=== PATIENT | male | born 2000 | race Caucasian/White ===

== ENCOUNTER 2020-11-09 09:29 | Inpatient (IN) ==
[2020-11-09] MEDS ORDERED: PHENOBARBITAL IV STA (09:36)
[2020-11-09] MEDS ORDERED: SODIUM CHLORIDE 0.9% IV STA (09:36)
[2020-11-09] MEDS ORDERED: ROCURONIUM 100 MG/10 ML VIAL IV ONE ×2 (09:55→11:14)
[2020-11-09] MEDS ORDERED: ETOMIDATE 20 MG/10 ML VIAL IV ONE (09:55)
[2020-11-09] MEDS ORDERED: DEXAMETHASONE 10 MG/1 ML VIAL IV STA (09:57)
[2020-11-09 10:00] LABS: Basophils # 0.1 10*3/uL (0.0-0.2); Basophils % 0.5 % (0.0-0.8); Eosinophils % 0.1 % (0.00-10.9); Hematocrit 46.1 VOL% (42.0-52.0); Hemoglobin 14.6 GM/DL (14.0-18.0); Immature Granulocytes % 2.1 %; Immature Granulocytes Absolute 0.46 #; Lymphocytes # 2.5 10*3/uL (1.4-4.0); Lymphocytes % 11.7 % (21.2-54.2); Mean Corpuscular HGB Conc 31.7 GM/DL (32-36); Mean Corpuscular Volume 94.3 FL (87-102); Mean Platelet Volume 9.6 FL (9.6-12.0); Monocytes % 2.5 % (1.7-12.7); NRBC # 0.02 10*3/uL; Neutrophils % 83.1 % (38.7-73.9); Platelet Count 165 T/CUMM (130-400); Red Blood Count 4.89 MC/CUMM (3.8-5.5); Red Cell Distribution Width 13.3 % (9.3-17.3); White Blood Count 21.5 T/CUMM (4-12)
[2020-11-09 10:17] LABS: Albumin 2.8 G/DL (3.4-5.0); Calcium 8.4 MG/DL (8.5-10.1); Ferritin 1725.7 ng/mL (26-388); Osmolality,Calculated 286.5 MOS/KG (273-304); Potassium 4.7 MMOL/L (3.5-5.1); Total Protein 6.8 G/DL (6.4-8.2)
[2020-11-09 10:22] LABS: Hypochromasia 1+; Lymphocytes 10 % (20-55); Microcytosis 1+; Platelet Estimate Adequate; Segmented Neutrophils 85 % (50-85); Total Cells Counted 100
[2020-11-09] MEDS: MIDAZOLAM 100 MG in SODIUM CHLORIDE 0.9% 80 ML IV PRN ×2 (11:15→19:42)
[2020-11-09] MEDS ORDERED: ROCURONIUM 100 MG/10 ML VIAL IV STA (11:17)
[2020-11-09 11:36] LABS: ABG Base Excess -0.2 MMOL/L (-2.5-2.5); ABG HCO3 24.1 MMOL/L (20-26); ABG Oxygen Saturation 91.6 % (95-100); ABG PCO2 59.2 MM HG (35-48); ABG PH 7.287 (7.35-7.45); ABG PO2 79.8 MM HG (80-95); ABG TCO2 24.5 MMOL/L (23-27)
[2020-11-09] MEDS ORDERED: fentaNYL INJ 1,250 MCG in SODIUM CHLORIDE 0.9% 225 ML IV PRN (11:41)
[2020-11-09] MEDS ORDERED: ALBUTEROL 2.5 MG/3 ML NEB RESP TX PRN (11:41)
[2020-11-09] MEDS ORDERED: GLUCAGON 1 MG VIAL IM PRN (11:46)
[2020-11-09] MEDS ORDERED: DEXTROSE 50% 25 GM/50 ML VIAL IV PRN (11:46)
[2020-11-09] MEDS: VECURONIUM 100 MG in SODIUM CHLORIDE 0.9% 100 ML IV SCH (11:50)
[2020-11-09] MEDS ORDERED: CHOLECALCIFEROL 1,000 UNIT TABLET PO SCH (12:00)
[2020-11-09] MEDS ORDERED: ASCORBIC ACID 500 MG TABLET PO SCH (12:00)
[2020-11-09] MEDS ORDERED: ZINC GLUCONATE 50 MG TABLET PO SCH (12:00)
[2020-11-09] MEDS ORDERED: ENOXAPARIN 60 MG/0.6 ML SYRINGE SUBCUT SCH (12:00)
[2020-11-09] MEDS: FAMOTIDINE 20 MG/2 ML VIAL IV SCH (12:45)
[2020-11-09] MEDS: INSULIN LISPRO 100 UNIT/ML SUBCUT SCH ×2 (13:02→18:10)
[2020-11-09] MEDS: ASCORBIC ACID 500 MG TABLET NG SCH ×2 (13:08→21:12)
[2020-11-09] MEDS: ZINC GLUCONATE 50 MG TABLET NG SCH (13:08)
[2020-11-09] MEDS: CHOLECALCIFEROL 1,000 UNIT TABLET NG SCH (13:08)
[2020-11-09] MEDS ORDERED: FUROSEMIDE 40 MG/4 ML VIAL IV ONE (15:13)
[2020-11-09] MEDS: HEPARIN DRIP 25,000 UNITS/500 ML PREMIX IV SCH (17:22)
[2020-11-09] MEDS: PIPERACILLIN/TAZOBACTAM 3,375 MG in SODIUM CHLORIDE 0.9% 100 ML IV SCH ×2 (17:22→23:08)
[2020-11-09] MEDS: fentaNYL INJ 5,000 MCG in SODIUM CHLORIDE 0.9% 150 ML IV PRN (20:55)
[2020-11-10] MEDS ORDERED: ENOXAPARIN 100 MG/ML SYRINGE SUBCUT SCH
[2020-11-10] MEDS: INSULIN LISPRO 100 UNIT/ML SUBCUT SCH ×4 (00:10→17:53)
[2020-11-10] MEDS: FAMOTIDINE 20 MG/2 ML VIAL IV SCH ×2 (00:11→12:33)
[2020-11-10 03:30] LABS: ABG Base Excess -0.1 MMOL/L (-2.5-2.5); ABG HCO3 26.5 MMOL/L (20-26); ABG Oxygen Saturation 98.3 % (95-100); ABG PCO2 51.1 MM HG (35-48); ABG PH 7.333 (7.35-7.45); ABG PO2 170.2 MM HG (80-95); ABG TCO2 28.1 MMOL/L (23-27)
[2020-11-10 04:19] LABS: Basophils % 0.1 % (0.0-0.8); Hemoglobin 13.6 GM/DL (14.0-18.0); Immature Granulocytes % 2.6 %; Immature Granulocytes Absolute 0.39 #; Lymphocytes # 0.8 10*3/uL (1.4-4.0); Lymphocytes % 5.5 % (21.2-54.2); Mean Corpuscular HGB Conc 30.9 GM/DL (32-36); Mean Corpuscular Volume 92.8 FL (87-102); Mean Platelet Volume 10.4 FL (9.6-12.0); Monocytes % 2.2 % (1.7-12.7); NRBC # 0.02 10*3/uL; Neutrophils % 89.6 % (38.7-73.9); Platelet Count 150 T/CUMM (130-400); Red Blood Count 4.74 MC/CUMM (3.8-5.5); White Blood Count 14.8 T/CUMM (4-12)
[2020-11-10 04:42] LABS: Albumin 2.6 G/DL (3.4-5.0); Bilirubin,Total 0.6 MG/DL (0.20-1.00); Calcium 8.4 MG/DL (8.5-10.1); Osmolality,Calculated 293.5 MOS/KG (273-304); Potassium 5.3 MMOL/L (3.5-5.1); Risk Ratio 3.87; Total Protein 7.1 G/DL (6.4-8.2); VLDL Cholesterol 45.8 MG/DL
[2020-11-10 04:47] LABS: Ferritin 1740.4 ng/mL (26-388)
[2020-11-10] MEDS: MIDAZOLAM 100 MG in SODIUM CHLORIDE 0.9% 80 ML IV PRN ×2 (05:40→16:42)
[2020-11-10] MEDS: HEPARIN DRIP 25,000 UNITS/500 ML PREMIX IV SCH ×2 (07:14→21:29)
[2020-11-10] MEDS: PIPERACILLIN/TAZOBACTAM 3,375 MG in SODIUM CHLORIDE 0.9% 100 ML IV SCH ×3 (09:10→23:23)
[2020-11-10] MEDS: DEXAMETHASONE 4 MG/1 ML VIAL IV SCH (09:10)
[2020-11-10] MEDS: ASCORBIC ACID 500 MG TABLET NG SCH ×2 (09:11→21:39)
[2020-11-10] MEDS: CHOLECALCIFEROL 1,000 UNIT TABLET NG SCH (09:11)
[2020-11-10] MEDS: ZINC GLUCONATE 50 MG TABLET NG SCH (09:11)
[2020-11-10] MEDS ORDERED: TOCILIZUMAB 800 MG in SODIUM CHLORIDE 0.9% 100 ML IV ONE (11:30)
[2020-11-10] MEDS: INSULIN GLARGINE 100 UNIT/ML SUBCUT SCH (12:32)
[2020-11-10] MEDS: METOPROLOL TARTRATE 25 MG TABLET NG SCH ×2 (12:32→21:39)
[2020-11-10] MEDS: VECURONIUM 100 MG in SODIUM CHLORIDE 0.9% 100 ML IV SCH (12:33)
[2020-11-10 14:21] LABS: Calcium 8.1 MG/DL (8.5-10.1); Osmolality,Calculated 302.1 MOS/KG (273-304); Potassium 5.3 MMOL/L (3.5-5.1)
[2020-11-10] MEDS ORDERED: SODIUM POLYSTYRENE SULFATE 15 GM/60 ML BOTTLE PO ONE (15:17)
[2020-11-10] MEDS: ACETAMINOPHEN 325 MG TABLET PO PRN ×2 (15:47→21:39)
[2020-11-10] MEDS ORDERED: BISACODYL 10 MG SUPP RECTAL ONE (16:09)
[2020-11-10] MEDS: fentaNYL INJ 5,000 MCG in SODIUM CHLORIDE 0.9% 150 ML IV PRN (18:39)
[2020-11-11] MEDS: INSULIN LISPRO 100 UNIT/ML SUBCUT SCH ×4 (00:55→18:25)
[2020-11-11] MEDS: FAMOTIDINE 20 MG/2 ML VIAL IV SCH ×2 (00:55→12:32)
[2020-11-11] MEDS: MIDAZOLAM 100 MG in SODIUM CHLORIDE 0.9% 80 ML IV PRN ×3 (02:23→22:36)
[2020-11-11 04:19] LABS: Basophils % 0.2 % (0.0-0.8); Eosinophils # 0.1 10*3/uL (0.0-0.87); Eosinophils % 0.7 % (0.00-10.9); Hematocrit 40.2 VOL% (42.0-52.0); Hemoglobin 12.4 GM/DL (14.0-18.0); Immature Granulocytes % 3.4 %; Immature Granulocytes Absolute 0.43 #; Lymphocytes # 1.4 10*3/uL (1.4-4.0); Lymphocytes % 10.8 % (21.2-54.2); Mean Corpuscular HGB Conc 30.8 GM/DL (32-36); Mean Corpuscular Volume 95.3 FL (87-102); Monocytes % 4.6 % (1.7-12.7); Neutrophils % 80.3 % (38.7-73.9); Platelet Count 189 T/CUMM (130-400); Red Blood Count 4.22 MC/CUMM (3.8-5.5); Red Cell Distribution Width 13.1 % (9.3-17.3); White Blood Count 12.7 T/CUMM (4-12)
[2020-11-11 04:38] LABS: ABG Base Excess 6.1 MMOL/L (-2.5-2.5); ABG HCO3 31.9 MMOL/L (20-26); ABG Oxygen Saturation 97.5 % (95-100); ABG PCO2 51.2 MM HG (35-48); ABG PH 7.413 (7.35-7.45); ABG PO2 110.9 MM HG (80-95); ABG TCO2 33.5 MMOL/L (23-27)
[2020-11-11 05:05] LABS: Albumin 2.2 G/DL (3.4-5.0); Bilirubin,Total 0.6 MG/DL (0.20-1.00); Calcium 7.9 MG/DL (8.5-10.1); Ferritin 1837.2 ng/mL (26-388); Osmolality,Calculated 298.8 MOS/KG (273-304); Potassium 4.4 MMOL/L (3.5-5.1); Total Protein 6.2 G/DL (6.4-8.2)
[2020-11-11] MEDS: METOPROLOL TARTRATE 25 MG TABLET NG SCH ×2 (08:30→22:15)
[2020-11-11] MEDS: ZINC GLUCONATE 50 MG TABLET NG SCH (08:30)
[2020-11-11] MEDS: PIPERACILLIN/TAZOBACTAM 3,375 MG in SODIUM CHLORIDE 0.9% 100 ML IV SCH ×2 (08:30→18:43)
[2020-11-11] MEDS: CHOLECALCIFEROL 1,000 UNIT TABLET NG SCH (08:30)
[2020-11-11] MEDS: POLYETHYLENE GLYCOL POWDER 17 GM PACK PO SCH (08:30)
[2020-11-11] MEDS: ASCORBIC ACID 500 MG TABLET NG SCH ×2 (08:31→22:15)
[2020-11-11] MEDS: DEXAMETHASONE 4 MG/1 ML VIAL IV SCH (08:31)
[2020-11-11] MEDS: INSULIN GLARGINE 100 UNIT/ML SUBCUT SCH (08:31)
[2020-11-11] MEDS ORDERED: INSULIN GLARGINE 100 UNIT/ML SUBCUT ONE (10:37)
[2020-11-11] MEDS ORDERED: methylPREDNISolone SOD SUC 40 MG/1 ML VIAL IV SCH (11:00)
[2020-11-11] MEDS: HEPARIN DRIP 25,000 UNITS/500 ML PREMIX IV SCH ×2 (12:11→18:42)
[2020-11-11] MEDS: AZITHROMYCIN INJ 500 MG in SODIUM CHLORIDE 0.9% 250 ML IV SCH (15:10)
[2020-11-11] MEDS: MICAFUNGIN 150 MG in SODIUM CHLORIDE 0.9% 100 ML IV SCH (16:48)
[2020-11-11] MEDS: ACETAMINOPHEN 325 MG TABLET PO PRN (22:15)
[2020-11-12] MEDS: methylPREDNISolone SOD SUC 40 MG/1 ML VIAL IV SCH ×2 (00:01→12:14)
[2020-11-12] MEDS: FAMOTIDINE 20 MG/2 ML VIAL IV SCH ×2 (00:04→12:14)
[2020-11-12] MEDS: INSULIN LISPRO 100 UNIT/ML SUBCUT SCH ×4 (00:12→18:21)
[2020-11-12] MEDS: HEPARIN DRIP 25,000 UNITS/500 ML PREMIX IV SCH (01:37)
[2020-11-12] MEDS: PIPERACILLIN/TAZOBACTAM 3,375 MG in SODIUM CHLORIDE 0.9% 100 ML IV SCH ×3 (02:58→17:46)
[2020-11-12 03:31] LABS: ABG Base Excess 6.2 MMOL/L (-2.5-2.5); ABG Oxygen Saturation 97.2 % (95-100); ABG PCO2 53.2 MM HG (35-48); ABG PH 7.395 (7.35-7.45); ABG TCO2 28.8 MMOL/L (23-27)
[2020-11-12 05:16] LABS: Basophils % 0.1 % (0.0-0.8); Hematocrit 37.5 VOL% (42.0-52.0); Hemoglobin 11.4 GM/DL (14.0-18.0); Immature Granulocytes % 1.7 %; Immature Granulocytes Absolute 0.16 #; Lymphocytes # 0.7 10*3/uL (1.4-4.0); Lymphocytes % 7.7 % (21.2-54.2); Mean Corpuscular HGB Conc 30.4 GM/DL (32-36); Mean Corpuscular Volume 95.2 FL (87-102); Mean Platelet Volume 10.5 FL (9.6-12.0); Monocytes % 4.3 % (1.7-12.7); Neutrophils % 86.2 % (38.7-73.9); Platelet Count 209 T/CUMM (130-400); Red Blood Count 3.94 MC/CUMM (3.8-5.5); Red Cell Distribution Width 13.2 % (9.3-17.3); White Blood Count 9.3 T/CUMM (4-12)
[2020-11-12] MEDS: fentaNYL INJ 5,000 MCG in SODIUM CHLORIDE 0.9% 150 ML IV PRN (05:43)
[2020-11-12 05:45] LABS: Alanine Aminotransferase 48 U/L (16-61); Albumin 2.2 G/DL (3.4-5.0); Alkaline Phosphatase 50 U/L (45-117); Aspartate Amino Transferase 37 U/L (0-37); Bilirubin,Total < 0.39 MG/DL (0.20-1.00); Blood Urea Nitrogen 26 MG/DL (7-18); Calcium 7.7 MG/DL (8.5-10.1); Carbon Dioxide 31 MMOL/L (21-32); Estimated Glom Filtration Rate 109 ML/MIN; Ferritin 1803.5 ng/mL (26-388); Glucose 260 MG/DL (74-106); Osmolality,Calculated 299.8 MOS/KG (273-304); Potassium 4.9 MMOL/L (3.5-5.1); Sodium 144 MMOL/L (136-145); Total Protein 5.9 G/DL (6.4-8.2)
[2020-11-12] MEDS: METOPROLOL TARTRATE 25 MG TABLET NG SCH ×2 (08:42→20:18)
[2020-11-12] MEDS: ASCORBIC ACID 500 MG TABLET NG SCH ×2 (08:42→20:18)
[2020-11-12] MEDS: CHOLECALCIFEROL 1,000 UNIT TABLET NG SCH (08:42)
[2020-11-12] MEDS: ZINC GLUCONATE 50 MG TABLET NG SCH (08:42)
[2020-11-12] MEDS: INSULIN GLARGINE 100 UNIT/ML SUBCUT SCH (08:43)
[2020-11-12] MEDS: POLYETHYLENE GLYCOL POWDER 17 GM PACK PO SCH (08:43)
[2020-11-12] MEDS: MIDAZOLAM 100 MG in SODIUM CHLORIDE 0.9% 80 ML IV PRN ×2 (09:30→19:16)
[2020-11-12] MEDS ORDERED: FUROSEMIDE 40 MG/4 ML VIAL IV ONE (11:02)
[2020-11-12] MEDS ORDERED: APIXABAN 5 MG TABLET PO SCH (11:05)
[2020-11-12] MEDS: ACETAMINOPHEN 325 MG TABLET PO PRN ×3 (12:15→22:02)
[2020-11-12] MEDS: AZITHROMYCIN INJ 500 MG in SODIUM CHLORIDE 0.9% 250 ML IV SCH (12:22)
[2020-11-12] MEDS: MICAFUNGIN 150 MG in SODIUM CHLORIDE 0.9% 100 ML IV SCH (14:42)
[2020-11-12] MEDS ORDERED: IBUPROFEN 600 MG TABLET PO PRN (16:51)
[2020-11-12] MEDS: PANTOPRAZOLE 40 MG VIAL IV SCH (20:18)
[2020-11-12] MEDS ORDERED: KETOROLAC 15 MG/1 ML VIAL IV ONE (20:45)
[2020-11-13] MEDS: IBUPROFEN 100 MG/5 ML UDCUP PO PRN (00:53)
[2020-11-13] MEDS: INSULIN LISPRO 100 UNIT/ML SUBCUT SCH ×4 (01:03→18:19)
[2020-11-13] MEDS: FAMOTIDINE 20 MG/2 ML VIAL IV SCH ×2 (01:15→11:53)
[2020-11-13] MEDS: methylPREDNISolone SOD SUC 40 MG/1 ML VIAL IV SCH ×2 (01:17→11:53)
[2020-11-13] MEDS: PIPERACILLIN/TAZOBACTAM 3,375 MG in SODIUM CHLORIDE 0.9% 100 ML IV SCH ×2 (02:27→11:02)
[2020-11-13] MEDS: HEPARIN DRIP 25,000 UNITS/500 ML PREMIX IV SCH ×2 (02:28→16:12)
[2020-11-13] MEDS: fentaNYL INJ 5,000 MCG in SODIUM CHLORIDE 0.9% 150 ML IV PRN ×2 (02:49→18:47)
[2020-11-13 04:36] LABS: ABG Base Excess 7.6 MMOL/L (-2.5-2.5); ABG HCO3 31.3 MMOL/L (20-26); ABG PCO2 46.7 MM HG (35-48); ABG PH 7.454 (7.35-7.45); ABG PO2 72.9 MM HG (80-95); ABG TCO2 28.8 MMOL/L (23-27)
[2020-11-13 04:49] LABS: Basophils % 0.1 % (0.0-0.8); Eosinophils # 0.1 10*3/uL (0.0-0.87); Eosinophils % 1.3 % (0.00-10.9); Hematocrit 37.6 VOL% (42.0-52.0); Hemoglobin 11.7 GM/DL (14.0-18.0); Immature Granulocytes % 1.1 %; Lymphocytes # 1.1 10*3/uL (1.4-4.0); Lymphocytes % 11.6 % (21.2-54.2); Mean Corpuscular HGB Conc 31.1 GM/DL (32-36); Mean Corpuscular Volume 95.4 FL (87-102); Mean Platelet Volume 10.8 FL (9.6-12.0); Monocytes % 5.9 % (1.7-12.7); Platelet Count 202 T/CUMM (130-400); Red Blood Count 3.94 MC/CUMM (3.8-5.5); Red Cell Distribution Width 13.2 % (9.3-17.3); White Blood Count 9.2 T/CUMM (4-12)
[2020-11-13 05:28] LABS: Calcium 8.3 MG/DL (8.5-10.1); Ferritin 1742.1 ng/mL (26-388); Osmolality,Calculated 299.8 MOS/KG (273-304); Potassium 4.4 MMOL/L (3.5-5.1)
[2020-11-13] MEDS: MIDAZOLAM 100 MG in SODIUM CHLORIDE 0.9% 80 ML IV PRN ×2 (05:57→19:15)
[2020-11-13] MEDS ORDERED: VANCOMYCIN INJ 1,750 MG in SODIUM CHLORIDE 0.9% 500 ML IV SCH (08:00)
[2020-11-13] MEDS: INSULIN GLARGINE 100 UNIT/ML SUBCUT SCH (08:48)
[2020-11-13] MEDS: PANTOPRAZOLE 40 MG VIAL IV SCH (08:48)
[2020-11-13] MEDS: ASCORBIC ACID 500 MG TABLET NG SCH ×2 (08:49→20:53)
[2020-11-13] MEDS: POLYETHYLENE GLYCOL POWDER 17 GM PACK PO SCH (08:49)
[2020-11-13] MEDS: CHOLECALCIFEROL 1,000 UNIT TABLET NG SCH (08:49)
[2020-11-13] MEDS: ZINC GLUCONATE 50 MG TABLET NG SCH (08:49)
[2020-11-13] MEDS: METOPROLOL TARTRATE 25 MG TABLET NG SCH ×2 (08:49→20:57)
[2020-11-13] MEDS ORDERED: VANCOMYCIN INJ 2,500 MG in SODIUM CHLORIDE 0.9% 500 ML IV ONE (15:00)
[2020-11-13] MEDS: MEROPENEM 500 MG in SODIUM CHLORIDE 0.9% 100 ML IV SCH (19:32)
[2020-11-13] MEDS: AZITHROMYCIN INJ 500 MG in SODIUM CHLORIDE 0.9% 250 ML IV SCH (20:53)
[2020-11-13] MEDS ORDERED: ROCURONIUM 100 MG/10 ML VIAL IV ONE ×2 (21:30→21:44)
[2020-11-13] MEDS ORDERED: ETOMIDATE 20 MG/10 ML VIAL IV ONE ×2 (21:30→21:44)
[2020-11-14] MEDS: INSULIN LISPRO 100 UNIT/ML SUBCUT SCH ×4 (00:17→18:42)
[2020-11-14] MEDS: MEROPENEM 500 MG in SODIUM CHLORIDE 0.9% 100 ML IV SCH ×4 (00:17→18:42)
[2020-11-14] MEDS: methylPREDNISolone SOD SUC 40 MG/1 ML VIAL IV SCH ×2 (00:18→12:49)
[2020-11-14] MEDS: FAMOTIDINE 20 MG/2 ML VIAL IV SCH ×2 (00:21→12:49)
[2020-11-14 04:03] LABS: ABG Base Excess 4.7 MMOL/L (-2.5-2.5); ABG HCO3 28.6 MMOL/L (20-26); ABG Oxygen Saturation 96.4 % (95-100); ABG PH 7.435 (7.35-7.45)
[2020-11-14 05:10] LABS: Albumin 2.5 G/DL (3.4-5.0); Bilirubin,Total 0.5 MG/DL (0.20-1.00); Ferritin 1635.5 ng/mL (26-388); Potassium 4.6 MMOL/L (3.5-5.1); Total Protein 5.7 G/DL (6.4-8.2)
[2020-11-14] MEDS: HEPARIN DRIP 25,000 UNITS/500 ML PREMIX IV SCH ×2 (06:19→08:33)
[2020-11-14] MEDS ORDERED: VANCOMYCIN INJ 1,750 MG in SODIUM CHLORIDE 0.9% 500 ML IV SCH (08:00)
[2020-11-14 08:10] LABS: Basophils % 0.1 % (0.0-0.8); Eosinophils # 0.1 10*3/uL (0.0-0.87); Eosinophils % 0.6 % (0.00-10.9); Hematocrit 38.1 VOL% (42.0-52.0); Hemoglobin 11.4 GM/DL (14.0-18.0); Immature Granulocytes % 0.7 %; Immature Granulocytes Absolute 0.07 #; Lymphocytes # 1.1 10*3/uL (1.4-4.0); Lymphocytes % 10.1 % (21.2-54.2); Mean Corpuscular HGB Conc 29.9 GM/DL (32-36); Mean Corpuscular Volume 96.5 FL (87-102); Mean Platelet Volume 12.3 FL (9.6-12.0); Monocytes % 4.1 % (1.7-12.7); Neutrophils % 84.4 % (38.7-73.9); Platelet Count 194 T/CUMM (130-400); Red Blood Count 3.95 MC/CUMM (3.8-5.5); Red Cell Distribution Width 13.1 % (9.3-17.3); White Blood Count 10.5 T/CUMM (4-12)
[2020-11-14] MEDS: MIDAZOLAM 100 MG in SODIUM CHLORIDE 0.9% 80 ML IV PRN (08:25)
[2020-11-14] MEDS: CHOLECALCIFEROL 1,000 UNIT TABLET NG SCH (08:26)
[2020-11-14] MEDS: ASCORBIC ACID 500 MG TABLET NG SCH ×2 (08:26→20:05)
[2020-11-14] MEDS: INSULIN GLARGINE 100 UNIT/ML SUBCUT SCH (08:26)
[2020-11-14] MEDS: ZINC GLUCONATE 50 MG TABLET NG SCH (08:26)
[2020-11-14] MEDS: METOPROLOL TARTRATE 25 MG TABLET NG SCH ×2 (08:27→20:05)
[2020-11-14] MEDS: POLYETHYLENE GLYCOL POWDER 17 GM PACK PO SCH (08:27)
[2020-11-14] MEDS: fentaNYL INJ 5,000 MCG in SODIUM CHLORIDE 0.9% 150 ML IV PRN (12:37)
[2020-11-14] MEDS: AZITHROMYCIN INJ 500 MG in SODIUM CHLORIDE 0.9% 250 ML IV SCH (20:05)
[2020-11-15] MEDS: INSULIN LISPRO 100 UNIT/ML SUBCUT SCH ×4 (00:17→18:10)
[2020-11-15] MEDS: MEROPENEM 500 MG in SODIUM CHLORIDE 0.9% 100 ML IV SCH ×4 (00:18→19:01)
[2020-11-15] MEDS: methylPREDNISolone SOD SUC 40 MG/1 ML VIAL IV SCH ×2 (00:20→11:40)
[2020-11-15] MEDS: FAMOTIDINE 20 MG/2 ML VIAL IV SCH ×2 (00:21→11:41)
[2020-11-15] MEDS: MIDAZOLAM 100 MG in SODIUM CHLORIDE 0.9% 80 ML IV PRN ×3 (00:56→22:49)
[2020-11-15] MEDS: HEPARIN DRIP 25,000 UNITS/500 ML PREMIX IV SCH ×2 (03:18→16:46)
[2020-11-15 03:34] LABS: ABG Base Excess 4.5 MMOL/L (-2.5-2.5); ABG HCO3 31.1 MMOL/L (20-26); ABG Oxygen Saturation 92.8 % (95-100); ABG PCO2 55.6 MM HG (35-48); ABG PH 7.366 (7.35-7.45); ABG PO2 72.3 MM HG (80-95); ABG TCO2 32.8 MMOL/L (23-27)
[2020-11-15 04:09] LABS: Basophils % 0.2 % (0.0-0.8); Eosinophils # 0.2 10*3/uL (0.0-0.87); Eosinophils % 1.8 % (0.00-10.9); Hematocrit 38.6 VOL% (42.0-52.0); Hemoglobin 12.1 GM/DL (14.0-18.0); Immature Granulocytes % 0.9 %; Lymphocytes # 1.2 10*3/uL (1.4-4.0); Mean Corpuscular HGB Conc 31.3 GM/DL (32-36); Mean Corpuscular Volume 94.8 FL (87-102); Mean Platelet Volume 10.9 FL (9.6-12.0); Neutrophils % 83.1 % (38.7-73.9); Platelet Count 183 T/CUMM (130-400); Red Blood Count 4.07 MC/CUMM (3.8-5.5); Red Cell Distribution Width 13.2 % (9.3-17.3); White Blood Count 11.2 T/CUMM (4-12)
[2020-11-15 04:49] LABS: Ferritin 1921.1 ng/mL (26-388)
[2020-11-15] MEDS: fentaNYL INJ 5,000 MCG in SODIUM CHLORIDE 0.9% 150 ML IV PRN ×2 (06:25→22:28)
[2020-11-15] MEDS: CHOLECALCIFEROL 1,000 UNIT TABLET NG SCH (08:13)
[2020-11-15] MEDS: ASCORBIC ACID 500 MG TABLET NG SCH ×2 (08:13→20:29)
[2020-11-15] MEDS: INSULIN GLARGINE 100 UNIT/ML SUBCUT SCH ×2 (08:13→20:29)
[2020-11-15] MEDS: ZINC GLUCONATE 50 MG TABLET NG SCH (08:14)
[2020-11-15] MEDS: POLYETHYLENE GLYCOL POWDER 17 GM PACK PO SCH (08:14)
[2020-11-15 08:36] LABS: Albumin 2.9 G/DL (3.4-5.0); Bilirubin,Total 0.5 MG/DL (0.20-1.00); Calcium 8.2 MG/DL (8.5-10.1); Osmolality,Calculated 286.5 MOS/KG (273-304); Potassium 4.8 MMOL/L (3.5-5.1)
[2020-11-15] MEDS: FLUCONAZOLE 100 MG TABLET PO SCH (11:40)
[2020-11-16] MEDS: INSULIN LISPRO 100 UNIT/ML SUBCUT SCH ×4 (00:09→18:04)
[2020-11-16] MEDS: methylPREDNISolone SOD SUC 40 MG/1 ML VIAL IV SCH ×2 (00:09→12:13)
[2020-11-16] MEDS: MEROPENEM 500 MG in SODIUM CHLORIDE 0.9% 100 ML IV SCH ×4 (00:10→18:04)
[2020-11-16] MEDS: FAMOTIDINE 20 MG/2 ML VIAL IV SCH ×2 (00:10→12:13)
[2020-11-16 03:53] LABS: ABG Base Excess 6.4 MMOL/L (-2.5-2.5); ABG HCO3 30.2 MMOL/L (20-26); ABG Oxygen Saturation 96.5 % (95-100); ABG PCO2 53.4 MM HG (35-48); ABG PH 7.397 (7.35-7.45); ABG TCO2 28.9 MMOL/L (23-27)
[2020-11-16 03:57] LABS: Basophils % 0.2 % (0.0-0.8); Eosinophils # 0.1 10*3/uL (0.0-0.87); Hematocrit 38.1 VOL% (42.0-52.0); Hemoglobin 12.2 GM/DL (14.0-18.0); Immature Granulocytes % 2.1 %; Immature Granulocytes Absolute 0.26 #; Lymphocytes # 1.4 10*3/uL (1.4-4.0); Lymphocytes % 11.3 % (21.2-54.2); Mean Corpuscular Volume 94.1 FL (87-102); Mean Platelet Volume 11.2 FL (9.6-12.0); Monocytes % 3.1 % (1.7-12.7); NRBC # 0.04 10*3/uL; Neutrophils % 82.3 % (38.7-73.9); Platelet Count 206 T/CUMM (130-400); Red Blood Count 4.05 MC/CUMM (3.8-5.5); Red Cell Distribution Width 13.2 % (9.3-17.3); White Blood Count 12.4 T/CUMM (4-12)
[2020-11-16 04:26] LABS: Band Neutrophils 4 % (0-10); Eosinophils 1 % (0-10); Lymphocytes 1 % (20-55); Myelocytes 1 %; Nucleated Red Blood Cells 2 (0-5); Segmented Neutrophils 91 % (50-85); Total Cells Counted 100
[2020-11-16 04:27] LABS: Microcytosis Slight; Platelet Estimate Normal
[2020-11-16] MEDS: HEPARIN DRIP 25,000 UNITS/500 ML PREMIX IV SCH ×2 (06:00→18:05)
[2020-11-16 06:06] LABS: Albumin 3.1 G/DL (3.4-5.0); Bilirubin,Total 0.8 MG/DL (0.20-1.00); Calcium 8.2 MG/DL (8.5-10.1); Osmolality,Calculated 279.1 MOS/KG (273-304); Potassium 4.8 MMOL/L (3.5-5.1); Total Protein 6.3 G/DL (6.4-8.2)
[2020-11-16] MEDS: CHOLECALCIFEROL 1,000 UNIT TABLET NG SCH (08:36)
[2020-11-16] MEDS: FLUCONAZOLE 100 MG TABLET PO SCH (08:36)
[2020-11-16] MEDS: POLYETHYLENE GLYCOL POWDER 17 GM PACK PO SCH (08:36)
[2020-11-16] MEDS: INSULIN GLARGINE 100 UNIT/ML SUBCUT SCH (08:36)
[2020-11-16] MEDS: ZINC GLUCONATE 50 MG TABLET NG SCH (08:37)
[2020-11-16] MEDS: ASCORBIC ACID 500 MG TABLET NG SCH ×2 (08:37→20:42)
[2020-11-16] MEDS: MIDAZOLAM 100 MG in SODIUM CHLORIDE 0.9% 80 ML IV PRN ×2 (10:50→22:56)
[2020-11-16] MEDS: fentaNYL INJ 5,000 MCG in SODIUM CHLORIDE 0.9% 150 ML IV PRN (10:50)
[2020-11-16] MEDS ORDERED: SODIUM CHLORIDE 0.9% 1,000 ML IV ONE (13:19)
[2020-11-16] MEDS: ALBUTEROL INHALER 18 GM INH SCH ×2 (15:56→19:38)
[2020-11-17] MEDS: HEPARIN DRIP 25,000 UNITS/500 ML PREMIX IV SCH ×2 (00:25→08:06)
[2020-11-17] MEDS: INSULIN LISPRO 100 UNIT/ML SUBCUT SCH ×5 (00:35→23:20)
[2020-11-17] MEDS: FAMOTIDINE 20 MG/2 ML VIAL IV SCH ×3 (00:36→23:07)
[2020-11-17] MEDS: methylPREDNISolone SOD SUC 40 MG/1 ML VIAL IV SCH ×3 (00:36→23:06)
[2020-11-17] MEDS: MEROPENEM 500 MG in SODIUM CHLORIDE 0.9% 100 ML IV SCH ×5 (00:36→23:07)
[2020-11-17] MEDS: ALBUTEROL INHALER 18 GM INH SCH ×4 (00:36→20:07)
[2020-11-17 04:23] LABS: Basophils % 0.2 % (0.0-0.8); Eosinophils # 0.2 10*3/uL (0.0-0.87); Eosinophils % 1.3 % (0.00-10.9); Hematocrit 37.3 VOL% (42.0-52.0); Hemoglobin 11.9 GM/DL (14.0-18.0); Immature Granulocytes % 3.3 %; Immature Granulocytes Absolute 0.47 #; Lymphocytes # 1.8 10*3/uL (1.4-4.0); Lymphocytes % 12.8 % (21.2-54.2); Mean Corpuscular HGB Conc 31.9 GM/DL (32-36); Mean Corpuscular Volume 93.7 FL (87-102); Mean Platelet Volume 11.2 FL (9.6-12.0); Monocytes % 3.8 % (1.7-12.7); NRBC # 0.08 10*3/uL; Neutrophils % 78.6 % (38.7-73.9); Platelet Count 204 T/CUMM (130-400); Red Blood Count 3.98 MC/CUMM (3.8-5.5); Red Cell Distribution Width 13.4 % (9.3-17.3); White Blood Count 14.1 T/CUMM (4-12)
[2020-11-17 04:32] LABS: ABG Base Excess 6.7 MMOL/L (-2.5-2.5); ABG HCO3 32.7 MMOL/L (20-26); ABG Oxygen Saturation 93.2 % (95-100); ABG PCO2 52.7 MM HG (35-48); ABG PO2 68.5 MM HG (80-95); ABG TCO2 34.3 MMOL/L (23-27)
[2020-11-17 04:42] LABS: Calcium 8.2 MG/DL (8.5-10.1); Osmolality,Calculated 283.7 MOS/KG (273-304); Potassium 4.8 MMOL/L (3.5-5.1)
[2020-11-17] MEDS: fentaNYL INJ 5,000 MCG in SODIUM CHLORIDE 0.9% 150 ML IV PRN (08:06)
[2020-11-17] MEDS: CHOLECALCIFEROL 1,000 UNIT TABLET NG SCH (09:16)
[2020-11-17] MEDS: ZINC GLUCONATE 50 MG TABLET NG SCH (09:16)
[2020-11-17] MEDS: POLYETHYLENE GLYCOL POWDER 17 GM PACK PO SCH (09:16)
[2020-11-17] MEDS: INSULIN GLARGINE 100 UNIT/ML SUBCUT SCH (09:17)
[2020-11-17] MEDS: METOPROLOL TARTRATE 25 MG TABLET NG SCH ×3 (09:17→23:09)
[2020-11-17] MEDS: FLUCONAZOLE 100 MG TABLET PO SCH (09:17)
[2020-11-17] MEDS: ASCORBIC ACID 500 MG TABLET NG SCH ×2 (09:18→21:38)
[2020-11-17] MEDS ORDERED: ALBUTEROL/IPRATROPIUM 3 ML NEB RESP TX PRN (12:12)
[2020-11-17] MEDS: APIXABAN 5 MG TABLET PO SCH ×2 (13:40→21:38)
[2020-11-17] MEDS: MIDAZOLAM 100 MG in SODIUM CHLORIDE 0.9% 80 ML IV PRN (15:42)
[2020-11-17] MEDS: ACETAMINOPHEN 325 MG TABLET PO PRN (23:06)
[2020-11-18] MEDS: fentaNYL INJ 5,000 MCG in SODIUM CHLORIDE 0.9% 150 ML IV PRN ×2 (00:38→18:25)
[2020-11-18] MEDS: ALBUTEROL INHALER 18 GM INH SCH ×4 (00:41→18:54)
[2020-11-18] MEDS: MIDAZOLAM 100 MG in SODIUM CHLORIDE 0.9% 80 ML IV PRN ×3 (01:20→23:44)
[2020-11-18 03:06] LABS: ABG Base Excess 5.3 MMOL/L (-2.5-2.5); ABG HCO3 30.4 MMOL/L (20-26); ABG PCO2 46.6 MM HG (35-48); ABG PH 7.432 (7.35-7.45); ABG PO2 68.9 MM HG (80-95); ABG TCO2 31.8 MMOL/L (23-27)
[2020-11-18 04:03] LABS: Basophils # 0.1 10*3/uL (0.0-0.2); Basophils % 0.3 % (0.0-0.8); Eosinophils # 0.1 10*3/uL (0.0-0.87); Eosinophils % 0.5 % (0.00-10.9); Hematocrit 38.8 VOL% (42.0-52.0); Hemoglobin 13.1 GM/DL (14.0-18.0); Immature Granulocytes % 4.5 %; Immature Granulocytes Absolute 0.71 #; Lymphocytes # 1.9 10*3/uL (1.4-4.0); Lymphocytes % 11.8 % (21.2-54.2); Mean Corpuscular HGB Conc 33.8 GM/DL (32-36); Mean Corpuscular Volume 94.2 FL (87-102); Mean Platelet Volume 11.2 FL (9.6-12.0); Monocytes % 5.1 % (1.7-12.7); NRBC # 0.16 10*3/uL; Neutrophils % 77.8 % (38.7-73.9); Platelet Count 248 T/CUMM (130-400); Red Blood Count 4.12 MC/CUMM (3.8-5.5); Red Cell Distribution Width 13.9 % (9.3-17.3)
[2020-11-18 04:23] LABS: Calcium 7.3 MG/DL (8.5-10.1); Total Protein 6.5 G/DL (6.4-8.2)
[2020-11-18 04:25] LABS: Band Neutrophils 4 % (0-10); Lymphocytes 16 % (20-55); Metamyelocytes 1 %; Myelocytes 1 %; Segmented Neutrophils 72 % (50-85); Total Cells Counted 100
[2020-11-18 04:28] LABS: Platelet Estimate Normal; Polychromasia Few
[2020-11-18] MEDS: MEROPENEM 500 MG in SODIUM CHLORIDE 0.9% 100 ML IV SCH ×3 (05:07→18:54)
[2020-11-18] MEDS: INSULIN LISPRO 100 UNIT/ML SUBCUT SCH ×3 (06:21→18:54)
[2020-11-18] MEDS: ZINC GLUCONATE 50 MG TABLET NG SCH (08:11)
[2020-11-18] MEDS: FLUCONAZOLE 100 MG TABLET PO SCH (08:12)
[2020-11-18] MEDS: ASCORBIC ACID 500 MG TABLET NG SCH ×2 (08:12→20:38)
[2020-11-18] MEDS: CHOLECALCIFEROL 1,000 UNIT TABLET NG SCH (08:12)
[2020-11-18] MEDS: APIXABAN 5 MG TABLET PO SCH ×2 (08:13→20:38)
[2020-11-18] MEDS: METOPROLOL TARTRATE 25 MG TABLET NG SCH ×2 (08:13→20:38)
[2020-11-18] MEDS: POLYETHYLENE GLYCOL POWDER 17 GM PACK PO SCH (08:13)
[2020-11-18] MEDS: INSULIN GLARGINE 100 UNIT/ML SUBCUT SCH (08:14)
[2020-11-18] MEDS ORDERED: FUROSEMIDE 40 MG/4 ML VIAL IV ONE (08:37)
[2020-11-18] MEDS: OLANZapine 5 MG TABLET PO SCH ×2 (11:20→20:38)
[2020-11-18] MEDS: FAMOTIDINE 20 MG/2 ML VIAL IV SCH (11:20)
[2020-11-18] MEDS: methylPREDNISolone SOD SUC 40 MG/1 ML VIAL IV SCH (11:21)
[2020-11-19] MEDS: FAMOTIDINE 20 MG/2 ML VIAL IV SCH ×2 (00:55→12:21)
[2020-11-19] MEDS: INSULIN LISPRO 100 UNIT/ML SUBCUT SCH ×4 (00:55→18:48)
[2020-11-19] MEDS: MEROPENEM 500 MG in SODIUM CHLORIDE 0.9% 100 ML IV SCH ×4 (00:55→18:49)
[2020-11-19] MEDS: ALBUTEROL INHALER 18 GM INH SCH ×4 (01:02→18:50)
[2020-11-19] MEDS: methylPREDNISolone SOD SUC 40 MG/1 ML VIAL IV SCH ×2 (01:02→12:21)
[2020-11-19 03:22] LABS: ABG Base Excess 5.6 MMOL/L (-2.5-2.5); ABG HCO3 29.4 MMOL/L (20-26); ABG PCO2 56.2 MM HG (35-48); ABG PH 7.372 (7.35-7.45); ABG PO2 88.6 MM HG (80-95); ABG TCO2 28.6 MMOL/L (23-27)
[2020-11-19 05:49] LABS: Basophils % 0.3 % (0.0-0.8); Eosinophils # 0.1 10*3/uL (0.0-0.87); Hematocrit 37.9 VOL% (42.0-52.0); Hemoglobin 13.6 GM/DL (14.0-18.0); Immature Granulocytes % 4.8 %; Immature Granulocytes Absolute 0.56 #; Lymphocytes # 1.6 10*3/uL (1.4-4.0); Lymphocytes % 13.4 % (21.2-54.2); Mean Corpuscular HGB Conc 35.9 GM/DL (32-36); Mean Corpuscular Volume 93.8 FL (87-102); Mean Platelet Volume 10.8 FL (9.6-12.0); Monocytes % 6.2 % (1.7-12.7); NRBC # 0.16 10*3/uL; Neutrophils % 74.3 % (38.7-73.9); Platelet Count 238 T/CUMM (130-400); Red Blood Count 4.04 MC/CUMM (3.8-5.5); Red Cell Distribution Width 14.4 % (9.3-17.3); White Blood Count 11.6 T/CUMM (4-12)
[2020-11-19 06:33] LABS: Eosinophils 1 % (0-10); Lymphocytes 11 % (20-55); Platelet Estimate Adequate; Segmented Neutrophils 83 % (50-85); Total Cells Counted 100
[2020-11-19 06:53] LABS: Osmolality,Calculated 275.5 MOS/KG (273-304); Potassium 5.1 MMOL/L (3.5-5.1)
[2020-11-19] MEDS: POLYETHYLENE GLYCOL POWDER 17 GM PACK PO SCH (08:07)
[2020-11-19] MEDS: METOPROLOL TARTRATE 25 MG TABLET NG SCH ×2 (08:07→20:06)
[2020-11-19] MEDS: INSULIN GLARGINE 100 UNIT/ML SUBCUT SCH (08:07)
[2020-11-19] MEDS: ASCORBIC ACID 500 MG TABLET NG SCH ×2 (08:08→20:05)
[2020-11-19] MEDS: OLANZapine 5 MG TABLET PO SCH ×2 (08:08→20:05)
[2020-11-19] MEDS: FLUCONAZOLE 100 MG TABLET PO SCH (08:08)
[2020-11-19] MEDS: APIXABAN 5 MG TABLET PO SCH ×2 (08:08→20:06)
[2020-11-19] MEDS: CHOLECALCIFEROL 1,000 UNIT TABLET NG SCH (08:08)
[2020-11-19] MEDS: ZINC GLUCONATE 50 MG TABLET NG SCH (08:08)
[2020-11-19] MEDS: fentaNYL INJ 5,000 MCG in SODIUM CHLORIDE 0.9% 150 ML IV PRN ×2 (08:10→18:28)
[2020-11-19] MEDS ORDERED: LORazepam 2 MG/1 ML VIAL IV ONE (10:41)
[2020-11-19] MEDS ORDERED: LORazepam 2 MG/1 ML VIAL ONE (10:43)
[2020-11-19] MEDS: MIDAZOLAM 100 MG in SODIUM CHLORIDE 0.9% 80 ML IV PRN (20:02)
[2020-11-20] MEDS: ALBUTEROL INHALER 18 GM INH SCH ×4 (01:08→18:35)
[2020-11-20] MEDS: INSULIN LISPRO 100 UNIT/ML SUBCUT SCH ×5 (01:08→20:54)
[2020-11-20] MEDS: FAMOTIDINE 20 MG/2 ML VIAL IV SCH ×2 (01:12→11:40)
[2020-11-20] MEDS: methylPREDNISolone SOD SUC 40 MG/1 ML VIAL IV SCH ×2 (01:12→11:40)
[2020-11-20] MEDS: MEROPENEM 500 MG in SODIUM CHLORIDE 0.9% 100 ML IV SCH ×3 (01:12→11:40)
[2020-11-20 03:49] LABS: ABG Base Excess 6.2 MMOL/L (-2.5-2.5); ABG HCO3 30.7 MMOL/L (20-26); ABG Oxygen Saturation 94.7 % (95-100); ABG PH 7.462 (7.35-7.45); ABG PO2 74.5 MM HG (80-95); ABG TCO2 32.1 MMOL/L (23-27)
[2020-11-20] MEDS: fentaNYL INJ 5,000 MCG in SODIUM CHLORIDE 0.9% 150 ML IV PRN ×3 (05:00→20:55)
[2020-11-20] MEDS: IBUPROFEN 100 MG/5 ML UDCUP PO PRN (05:22)
[2020-11-20] MEDS: MIDAZOLAM 100 MG in SODIUM CHLORIDE 0.9% 80 ML IV PRN ×2 (05:58→15:07)
[2020-11-20 06:16] LABS: Potassium 4.4 MMOL/L (3.5-5.1)
[2020-11-20 06:32] LABS: Basophils # 0.1 10*3/uL (0.0-0.2); Basophils % 0.5 % (0.0-0.8); Eosinophils # 0.1 10*3/uL (0.0-0.87); Eosinophils % 1.3 % (0.00-10.9); Hematocrit 38.1 VOL% (42.0-52.0); Immature Granulocytes Absolute 0.38 #; Lymphocytes # 1.2 10*3/uL (1.4-4.0); Lymphocytes % 12.6 % (21.2-54.2); Mean Corpuscular Volume 95.5 FL (87-102); Mean Platelet Volume 11.9 FL (9.6-12.0); Monocytes % 6.4 % (1.7-12.7); NRBC # 0.08 10*3/uL; Neutrophils % 75.2 % (38.7-73.9); Platelet Count 252 T/CUMM (130-400); Red Blood Count 3.99 MC/CUMM (3.8-5.5); Red Cell Distribution Width 14.8 % (9.3-17.3); White Blood Count 9.6 T/CUMM (4-12)
[2020-11-20 06:41] LABS: Hemoglobin 14.1 GM/DL (14.0-18.0)
[2020-11-20 06:54] LABS: Band Neutrophils 1 % (0-10); Lymphocytes 23 % (20-55); Nucleated Red Blood Cells 1 (0-5); Platelet Estimate Adequate; Segmented Neutrophils 68 % (50-85); Total Cells Counted 100
[2020-11-20 06:58] LABS: Calcium 8.3 MG/DL (8.5-10.1); Triglycerides 5402 MG/DL (2-150)
[2020-11-20 06:59] LABS: Osmolality,Calculated 273.8 MOS/KG (273-304)
[2020-11-20] MEDS: ASCORBIC ACID 500 MG TABLET NG SCH ×2 (08:10→20:38)
[2020-11-20] MEDS: POLYETHYLENE GLYCOL POWDER 17 GM PACK PO SCH (08:10)
[2020-11-20] MEDS: ZINC GLUCONATE 50 MG TABLET NG SCH (08:11)
[2020-11-20] MEDS: CHOLECALCIFEROL 1,000 UNIT TABLET NG SCH (08:11)
[2020-11-20] MEDS: APIXABAN 5 MG TABLET PO SCH ×2 (08:11→20:38)
[2020-11-20] MEDS: METOPROLOL TARTRATE 25 MG TABLET NG SCH ×2 (08:11→20:38)
[2020-11-20] MEDS: OLANZapine 5 MG TABLET PO SCH ×2 (08:11→20:38)
[2020-11-20] MEDS: INSULIN GLARGINE 100 UNIT/ML SUBCUT SCH (08:11)
[2020-11-20] MEDS: FENOFIBRATE 160 MG TABLET PO SCH (09:21)
[2020-11-20 10:46] LABS: Calcium 8.4 MG/DL (8.5-10.1); Osmolality,Calculated 277.2 MOS/KG (273-304); Potassium 4.3 MMOL/L (3.5-5.1)
[2020-11-20] MEDS ORDERED: DEXMEDETOMIDINE 200 MCG in SODIUM CHLORIDE 0.9% 48 ML IV PRN (16:21)
[2020-11-20] MEDS ORDERED: LORazepam 2 MG/1 ML VIAL IV ONE (17:18)
[2020-11-20] MEDS ORDERED: LORazepam 2 MG/1 ML VIAL ONE (17:20)
[2020-11-20] MEDS: ATORVASTATIN 20 MG TABLET PO SCH (20:43)
[2020-11-21] MEDS: INSULIN LISPRO 100 UNIT/ML SUBCUT SCH ×6 (00:20→20:35)
[2020-11-21] MEDS: FAMOTIDINE 20 MG/2 ML VIAL IV SCH ×2 (00:26→11:44)
[2020-11-21] MEDS: methylPREDNISolone SOD SUC 40 MG/1 ML VIAL IV SCH ×2 (00:27→11:43)
[2020-11-21] MEDS: ALBUTEROL INHALER 18 GM INH SCH ×4 (00:28→22:08)
[2020-11-21] MEDS: DEXMEDETOMIDINE 400 MCG in SODIUM CHLORIDE 0.9% 96 ML IV PRN ×2 (00:31→18:35)
[2020-11-21] MEDS: MIDAZOLAM 100 MG in SODIUM CHLORIDE 0.9% 80 ML IV PRN ×2 (00:46→10:28)
[2020-11-21] MEDS: LORazepam 2 MG/1 ML VIAL IV PRN ×4 (01:13→20:02)
[2020-11-21] MEDS: fentaNYL INJ 5,000 MCG in SODIUM CHLORIDE 0.9% 150 ML IV PRN ×6 (01:44→22:32)
[2020-11-21 02:57] LABS: ABG Base Excess 4.7 MMOL/L (-2.5-2.5); ABG HCO3 28.6 MMOL/L (20-26); ABG Oxygen Saturation 96.8 % (95-100); ABG PCO2 49.1 MM HG (35-48); ABG PO2 95.5 MM HG (80-95); ABG TCO2 27.2 MMOL/L (23-27)
[2020-11-21] MEDS ORDERED: LORazepam 2 MG/1 ML VIAL IV STA (04:17)
[2020-11-21 05:08] LABS: Basophils % 0.2 % (0.0-0.8); Eosinophils # 0.1 10*3/uL (0.0-0.87); Eosinophils % 1.2 % (0.00-10.9); Hematocrit 36.3 VOL% (42.0-52.0); Hemoglobin 12.5 GM/DL (14.0-18.0); Immature Granulocytes % 1.5 %; Immature Granulocytes Absolute 0.12 #; Lymphocytes # 1.2 10*3/uL (1.4-4.0); Lymphocytes % 14.9 % (21.2-54.2); Mean Corpuscular HGB Conc 34.4 GM/DL (32-36); Mean Corpuscular Volume 94.8 FL (87-102); Mean Platelet Volume 11.3 FL (9.6-12.0); Monocytes % 5.6 % (1.7-12.7); NRBC # 0.04 10*3/uL; Neutrophils % 76.6 % (38.7-73.9); Platelet Count 211 T/CUMM (130-400); Red Blood Count 3.83 MC/CUMM (3.8-5.5); Red Cell Distribution Width 15.4 % (9.3-17.3); White Blood Count 8.1 T/CUMM (4-12)
[2020-11-21 07:31] LABS: Osmolality,Calculated 281.1 MOS/KG (273-304); Potassium 4.7 MMOL/L (3.5-5.1)
[2020-11-21] MEDS: INSULIN GLARGINE 100 UNIT/ML SUBCUT SCH (08:01)
[2020-11-21] MEDS: ZINC GLUCONATE 50 MG TABLET NG SCH (08:02)
[2020-11-21] MEDS: CHOLECALCIFEROL 1,000 UNIT TABLET NG SCH (08:02)
[2020-11-21] MEDS: ASCORBIC ACID 500 MG TABLET NG SCH ×2 (08:02→22:00)
[2020-11-21] MEDS: POLYETHYLENE GLYCOL POWDER 17 GM PACK PO SCH (08:03)
[2020-11-21] MEDS: OLANZapine 5 MG TABLET PO SCH ×2 (08:03→22:00)
[2020-11-21] MEDS: APIXABAN 5 MG TABLET PO SCH ×2 (08:03→22:01)
[2020-11-21] MEDS: FENOFIBRATE 160 MG TABLET PO SCH (08:03)
[2020-11-21] MEDS: METOPROLOL TARTRATE 25 MG TABLET NG SCH ×2 (08:03→21:59)
[2020-11-21] MEDS ORDERED: SODIUM BICARBONATE 50 MEQ/50 ML VIAL IV ONE (10:20)
[2020-11-21 13:02] LABS: ABG Base Excess 9.6 MMOL/L (-2.5-2.5); ABG HCO3 32.4 MMOL/L (20-26); ABG PH 7.359 (7.35-7.45); ABG TCO2 34.3 MMOL/L (23-27); Glucose Heart Surgery 111 MG/DL (74-106); Hematocrit Heart Surgery 34.9 PERCENT (42-52); Hemoglobin Heart Surgery 11.3 G/DL (14.0-18.0); Potassium Heart/CVR 3.8 MMOL/L (3.5-5.1)
[2020-11-21 13:11] LABS: ABG PO2 33.5 MM HG (80-95)
[2020-11-21 14:02] LABS: ABG Base Excess 8.6 MMOL/L (-2.5-2.5); ABG HCO3 32.3 MMOL/L (20-26); ABG Oxygen Saturation 95.2 % (95-100)
[2020-11-21] MEDS: LORazepam 1 MG TABLET PO SCH ×2 (14:09→22:01)
[2020-11-21] MEDS ORDERED: OLANZapine 5 MG TABLET PO ONE (15:16)
[2020-11-21] MEDS: ACETAMINOPHEN 325 MG TABLET PO PRN (15:31)
[2020-11-21] MEDS: ATORVASTATIN 20 MG TABLET PO SCH (22:01)
[2020-11-22] MEDS: INSULIN LISPRO 100 UNIT/ML SUBCUT SCH ×6 (01:38→19:58)
[2020-11-22] MEDS: FAMOTIDINE 20 MG/2 ML VIAL IV SCH ×2 (01:38→11:04)
[2020-11-22] MEDS: ALBUTEROL INHALER 18 GM INH SCH ×4 (01:41→18:48)
[2020-11-22] MEDS: methylPREDNISolone SOD SUC 40 MG/1 ML VIAL IV SCH ×2 (01:41→11:04)
[2020-11-22 02:58] LABS: ABG Base Excess 7.6 MMOL/L (-2.5-2.5); ABG HCO3 31.3 MMOL/L (20-26); ABG Oxygen Saturation 95.1 % (95-100); ABG PCO2 44.8 MM HG (35-48); ABG PH 7.466 (7.35-7.45); ABG PO2 76.3 MM HG (80-95); ABG TCO2 28.9 MMOL/L (23-27)
[2020-11-22] MEDS: fentaNYL INJ 5,000 MCG in SODIUM CHLORIDE 0.9% 150 ML IV PRN (03:22)
[2020-11-22] MEDS: LORazepam 2 MG/1 ML VIAL IV PRN (03:29)
[2020-11-22 04:29] LABS: Basophils % 0.3 % (0.0-0.8); Eosinophils # 0.2 10*3/uL (0.0-0.87); Eosinophils % 1.8 % (0.00-10.9); Hemoglobin 11.2 GM/DL (14.0-18.0); Immature Granulocytes % 5.4 %; Immature Granulocytes Absolute 0.62 #; Lymphocytes # 1.5 10*3/uL (1.4-4.0); Lymphocytes % 13.2 % (21.2-54.2); Mean Corpuscular HGB Conc 31.1 GM/DL (32-36); Mean Corpuscular Volume 97.8 FL (87-102); Mean Platelet Volume 11.3 FL (9.6-12.0); Monocytes % 5.3 % (1.7-12.7); Platelet Count 183 T/CUMM (130-400); Red Blood Count 3.68 MC/CUMM (3.8-5.5); Red Cell Distribution Width 13.2 % (9.3-17.3); White Blood Count 11.5 T/CUMM (4-12)
[2020-11-22] MEDS: DEXMEDETOMIDINE 400 MCG in SODIUM CHLORIDE 0.9% 96 ML IV PRN (04:32)
[2020-11-22] MEDS: MIDAZOLAM 100 MG in SODIUM CHLORIDE 0.9% 80 ML IV PRN (04:44)
[2020-11-22 04:51] LABS: Calcium 8.6 MG/DL (8.5-10.1); Osmolality,Calculated 291.1 MOS/KG (273-304); Potassium 4.5 MMOL/L (3.5-5.1)
[2020-11-22 04:53] LABS: Eosinophils 2 % (0-10); Lymphocytes 13 % (20-55); Platelet Estimate Adequate; Segmented Neutrophils 84 % (50-85); Total Cells Counted 100
[2020-11-22 04:54] LABS: Hypochromasia Slight; Microcytosis Slight
[2020-11-22] MEDS: FENOFIBRATE 160 MG TABLET PO SCH (08:14)
[2020-11-22] MEDS: ZINC GLUCONATE 50 MG TABLET NG SCH (08:14)
[2020-11-22] MEDS: CHOLECALCIFEROL 1,000 UNIT TABLET NG SCH (08:15)
[2020-11-22] MEDS: METOPROLOL TARTRATE 25 MG TABLET NG SCH ×2 (08:15→20:30)
[2020-11-22] MEDS: LORazepam 1 MG TABLET PO SCH (08:15)
[2020-11-22] MEDS: OLANZapine 5 MG TABLET PO SCH (08:15)
[2020-11-22] MEDS: ASCORBIC ACID 500 MG TABLET NG SCH ×2 (08:15→20:31)
[2020-11-22] MEDS: INSULIN GLARGINE 100 UNIT/ML SUBCUT SCH (08:27)
[2020-11-22] MEDS ORDERED: LORazepam 1 MG TABLET PO PRN (08:38)
[2020-11-22] MEDS: APIXABAN 5 MG TABLET PO SCH ×2 (08:41→20:31)
[2020-11-22] MEDS: POLYETHYLENE GLYCOL POWDER 17 GM PACK PO SCH (08:41)
[2020-11-22] MEDS ORDERED: ONDANSETRON 4 MG/2 ML VIAL IV PRN (11:37)
[2020-11-22] MEDS ORDERED: ONDANSETRON 4 MG/2 ML VIAL ONE (11:37)
[2020-11-22] MEDS: LEVOFLOXACIN INJ 750 MG/150 ML PREMIX IV SCH (15:00)
[2020-11-22] MEDS: ATORVASTATIN 20 MG TABLET PO SCH (20:31)
[2020-11-23] MEDS: FAMOTIDINE 20 MG/2 ML VIAL IV SCH ×3 (00:01→23:36)
[2020-11-23] MEDS: INSULIN LISPRO 100 UNIT/ML SUBCUT SCH ×7 (00:07→21:06)
[2020-11-23] MEDS: methylPREDNISolone SOD SUC 40 MG/1 ML VIAL IV SCH ×3 (00:07→23:35)
[2020-11-23] MEDS: ALBUTEROL INHALER 18 GM INH SCH ×4 (00:09→21:06)
[2020-11-23] MEDS ORDERED: LORazepam 2 MG/1 ML VIAL IV ONE (01:45)
[2020-11-23] MEDS ORDERED: LORazepam 2 MG/1 ML VIAL ONE (02:00)
[2020-11-23 04:34] LABS: ABG Base Excess 4.9 MMOL/L (-2.5-2.5); ABG HCO3 27.4 MMOL/L (20-26); ABG Oxygen Saturation 98.5 % (95-100); ABG PCO2 33.9 MM HG (35-48); ABG PH 7.525 (7.35-7.45); ABG PO2 112.2 MM HG (80-95); ABG TCO2 28.4 MMOL/L (23-27)
[2020-11-23 04:48] LABS: Basophils % 0.2 % (0.0-0.8); Eosinophils # 0.2 10*3/uL (0.0-0.87); Hematocrit 38.5 VOL% (42.0-52.0); Hemoglobin 12.6 GM/DL (14.0-18.0); Immature Granulocytes % 0.5 %; Immature Granulocytes Absolute 0.04 #; Lymphocytes # 1.1 10*3/uL (1.4-4.0); Lymphocytes % 13.8 % (21.2-54.2); Mean Corpuscular HGB Conc 32.7 GM/DL (32-36); Mean Corpuscular Volume 91.9 FL (87-102); Mean Platelet Volume 10.6 FL (9.6-12.0); Monocytes % 3.4 % (1.7-12.7); Neutrophils % 80.1 % (38.7-73.9); Platelet Count 172 T/CUMM (130-400); Red Blood Count 4.19 MC/CUMM (3.8-5.5); White Blood Count 8.1 T/CUMM (4-12)
[2020-11-23 05:14] LABS: Calcium 8.5 MG/DL (8.5-10.1); Osmolality,Calculated 273.1 MOS/KG (273-304); Potassium 3.3 MMOL/L (3.5-5.1)
[2020-11-23 06:12] LABS: Risk Ratio 13.14; VLDL Cholesterol 501.8 MG/DL
[2020-11-23] MEDS: METOPROLOL TARTRATE 25 MG TABLET NG SCH ×2 (08:05→21:06)
[2020-11-23] MEDS: APIXABAN 5 MG TABLET PO SCH ×2 (08:05→21:05)
[2020-11-23] MEDS: ZINC GLUCONATE 50 MG TABLET NG SCH (08:05)
[2020-11-23] MEDS: CHOLECALCIFEROL 1,000 UNIT TABLET NG SCH (08:05)
[2020-11-23] MEDS: INSULIN GLARGINE 100 UNIT/ML SUBCUT SCH (08:05)
[2020-11-23] MEDS: ASCORBIC ACID 500 MG TABLET NG SCH ×2 (08:05→21:05)
[2020-11-23] MEDS: POLYETHYLENE GLYCOL POWDER 17 GM PACK PO SCH (08:05)
[2020-11-23] MEDS: FENOFIBRATE 160 MG TABLET PO SCH (08:05)
[2020-11-23] MEDS ORDERED: POTASSIUM CHLORIDE 20 MEQ TABLET PO PRN (09:35)
[2020-11-23] MEDS: POTASSIUM CHLORIDE RIDER 10 MEQ/100 ML PREMIX IV PRN ×4 (10:04→13:04)
[2020-11-23] MEDS: LEVOFLOXACIN INJ 750 MG/150 ML PREMIX IV SCH (12:46)
[2020-11-23] MEDS: ATORVASTATIN 20 MG TABLET PO SCH (21:05)
[2020-11-23] MEDS: QUEtiapine 25 MG TABLET PO SCH (21:05)
[2020-11-23] MEDS: ACETAMINOPHEN 325 MG TABLET PO PRN (21:56)
[2020-11-24] MEDS: ALBUTEROL INHALER 18 GM INH SCH ×4 (01:08→20:58)
[2020-11-24] MEDS: ACETAMINOPHEN 325 MG TABLET PO PRN ×3 (02:20→17:33)
[2020-11-24 04:22] LABS: ABG Base Excess 2.4 MMOL/L (-2.5-2.5); ABG HCO3 26.5 MMOL/L (20-26); ABG Oxygen Saturation 97.2 % (95-100); ABG PH 7.488 (7.35-7.45); ABG PO2 88.3 MM HG (80-95); ABG TCO2 21.4 MMOL/L (23-27)
[2020-11-24 05:15] LABS: Basophils % 0.2 % (0.0-0.8); Eosinophils # 0.2 10*3/uL (0.0-0.87); Eosinophils % 1.8 % (0.00-10.9); Hematocrit 42.4 VOL% (42.0-52.0); Hemoglobin 14.1 GM/DL (14.0-18.0); Immature Granulocytes % 0.4 %; Immature Granulocytes Absolute 0.04 #; Lymphocytes # 1.2 10*3/uL (1.4-4.0); Lymphocytes % 13.6 % (21.2-54.2); Mean Corpuscular HGB Conc 33.3 GM/DL (32-36); Mean Corpuscular Volume 90.6 FL (87-102); Mean Platelet Volume 10.4 FL (9.6-12.0); Monocytes % 4.8 % (1.7-12.7); Neutrophils % 79.2 % (38.7-73.9); Platelet Count 168 T/CUMM (130-400); Red Blood Count 4.68 MC/CUMM (3.8-5.5); Red Cell Distribution Width 15.2 % (9.3-17.3)
[2020-11-24 05:33] LABS: Calcium 8.8 MG/DL (8.5-10.1); Osmolality,Calculated 270.2 MOS/KG (273-304); Potassium 3.7 MMOL/L (3.5-5.1)
[2020-11-24] MEDS: CHOLECALCIFEROL 1,000 UNIT TABLET NG SCH (08:25)
[2020-11-24] MEDS: ASCORBIC ACID 500 MG TABLET NG SCH ×2 (08:25→20:58)
[2020-11-24] MEDS: POLYETHYLENE GLYCOL POWDER 17 GM PACK PO SCH (08:25)
[2020-11-24] MEDS: METOPROLOL TARTRATE 25 MG TABLET NG SCH ×2 (08:25→20:58)
[2020-11-24] MEDS: INSULIN GLARGINE 100 UNIT/ML SUBCUT SCH (08:26)
[2020-11-24] MEDS: APIXABAN 5 MG TABLET PO SCH ×2 (08:26→20:58)
[2020-11-24] MEDS: INSULIN LISPRO 100 UNIT/ML SUBCUT SCH ×4 (08:27→20:35)
[2020-11-24] MEDS: ZINC GLUCONATE 50 MG TABLET NG SCH (10:18)
[2020-11-24] MEDS: FENOFIBRATE 160 MG TABLET PO SCH (10:18)
[2020-11-24] MEDS: LEVOFLOXACIN INJ 750 MG/150 ML PREMIX IV SCH (12:07)
[2020-11-24] MEDS: FAMOTIDINE 20 MG/2 ML VIAL IV SCH (12:08)
[2020-11-24 14:53] LABS: Bilirubin,Urine Negative (Negative); Blood, Urine Negative (Negative); Glucose,Urine (UA) Negative (Negative); Ketones,Urine Negative (Negative); Mucus,Urine Occasional /LPF (Occasional); Nitrite,Urine Negative (Negative); Protein,Urine Negative; RBC,Urine 3 /HPF (0-4); Squamous Epithelial Cell,Urine Occasional /HPF (0-10); Urine Appearance CLEAR (Clear); Urine Color Yellow (Yellow); Urine Specific Gravity 1.018 (1.001-1.035)
[2020-11-24] MEDS ORDERED: DEXTROSE 50% 25 GM/50 ML VIAL IV PRN (16:25)
[2020-11-24] MEDS: ATORVASTATIN 20 MG TABLET PO SCH (20:58)
[2020-11-24] MEDS: QUEtiapine 25 MG TABLET PO SCH (20:58)
[2020-11-25] MEDS: FAMOTIDINE 20 MG/2 ML VIAL IV SCH ×2 (00:33→12:47)
[2020-11-25] MEDS: ALBUTEROL INHALER 18 GM INH SCH ×4 (00:33→19:19)
[2020-11-25 06:41] LABS: Basophils % 0.5 % (0.0-0.8); Eosinophils # 0.5 10*3/uL (0.0-0.87); Eosinophils % 7.1 % (0.00-10.9); Hematocrit 44.7 VOL% (42.0-52.0); Hemoglobin 14.7 GM/DL (14.0-18.0); Immature Granulocytes % 0.7 %; Immature Granulocytes Absolute 0.05 #; Lymphocytes # 2.5 10*3/uL (1.4-4.0); Lymphocytes % 32.7 % (21.2-54.2); Mean Corpuscular HGB Conc 32.9 GM/DL (32-36); Mean Corpuscular Volume 91.4 FL (87-102); Mean Platelet Volume 10.7 FL (9.6-12.0); Monocytes % 5.5 % (1.7-12.7); Neutrophils % 53.5 % (38.7-73.9); Platelet Count 107 T/CUMM (130-400); Red Blood Count 4.89 MC/CUMM (3.8-5.5); Red Cell Distribution Width 15.4 % (9.3-17.3); White Blood Count 7.7 T/CUMM (4-12)
[2020-11-25 07:08] LABS: Calcium 8.8 MG/DL (8.5-10.1); Osmolality,Calculated 272.8 MOS/KG (273-304); Potassium 3.2 MMOL/L (3.5-5.1)
[2020-11-25 07:21] LABS: Polychromasia Slight
[2020-11-25 07:22] LABS: Platelet Estimate Adequate
[2020-11-25 07:23] LABS: Anisocytosis Slight; Microcytosis 1+; Stomatocytes Few
[2020-11-25] MEDS: INSULIN LISPRO 100 UNIT/ML SUBCUT SCH ×4 (08:06→20:03)
[2020-11-25] MEDS: APIXABAN 5 MG TABLET PO SCH ×2 (08:33→20:02)
[2020-11-25] MEDS: ASCORBIC ACID 500 MG TABLET NG SCH ×2 (08:33→20:02)
[2020-11-25] MEDS: METOPROLOL TARTRATE 25 MG TABLET NG SCH ×2 (08:34→20:03)
[2020-11-25] MEDS: predniSONE 20 MG TABLET PO SCH (08:34)
[2020-11-25] MEDS: POLYETHYLENE GLYCOL POWDER 17 GM PACK PO SCH (08:34)
[2020-11-25] MEDS: CHOLECALCIFEROL 1,000 UNIT TABLET NG SCH (08:34)
[2020-11-25] MEDS: INSULIN GLARGINE 100 UNIT/ML SUBCUT SCH (08:35)
[2020-11-25] MEDS: ZINC GLUCONATE 50 MG TABLET NG SCH (08:43)
[2020-11-25] MEDS: FENOFIBRATE 160 MG TABLET PO SCH (08:44)
[2020-11-25] MEDS: POTASSIUM CHLORIDE RIDER 10 MEQ/100 ML PREMIX IV PRN ×4 (08:53→12:46)
[2020-11-25 11:38] LABS: Albumin 3.7 G/DL (3.4-5.0); Bilirubin,Direct 0.34 MG/DL (0.0-0.20); Bilirubin,Indirect 0.8 MG/DL (0.0-1.0); Bilirubin,Total 1.1 MG/DL (0.20-1.00); Total Protein 6.7 G/DL (6.4-8.2)
[2020-11-25] MEDS: LEVOFLOXACIN INJ 750 MG/150 ML PREMIX IV SCH (13:58)
[2020-11-25 14:13] LABS: Hepatitis B Core IgM Quant 0.11 Index; Hepatitis B Surface Ag Quant < 0.10 Index; Hepatitis B Surface Ag Result Non-Reactive (NonReactive); Hepatitis C Virus Ab Quant 0.03 Index; Hepatitis C Virus Ab Result Non-Reactive (NonReactive)
[2020-11-25] MEDS ORDERED: LACTULOSE 20 GM/30 ML UDCUP PO ONE (14:58)
[2020-11-25] MEDS: LACTULOSE 20 GM/30 ML UDCUP PO SCH (20:02)
[2020-11-25] MEDS: QUEtiapine 25 MG TABLET PO SCH (20:03)
[2020-11-25] MEDS: ATORVASTATIN 20 MG TABLET PO SCH (20:03)
[2020-11-26] MEDS: FAMOTIDINE 20 MG/2 ML VIAL IV SCH ×2 (02:10→13:08)
[2020-11-26 05:43] LABS: Basophils % 0.4 % (0.0-0.8); Eosinophils # 0.4 10*3/uL (0.0-0.87); Eosinophils % 6.1 % (0.00-10.9); Hematocrit 42.7 VOL% (42.0-52.0); Hemoglobin 13.8 GM/DL (14.0-18.0); Immature Granulocytes % 0.3 %; Immature Granulocytes Absolute 0.02 #; Lymphocytes # 2.4 10*3/uL (1.4-4.0); Lymphocytes % 35.2 % (21.2-54.2); Mean Corpuscular HGB Conc 32.3 GM/DL (32-36); Monocytes % 6.6 % (1.7-12.7); Neutrophils % 51.4 % (38.7-73.9); Red Blood Count 4.59 MC/CUMM (3.8-5.5); Red Cell Distribution Width 15.3 % (9.3-17.3); White Blood Count 6.7 T/CUMM (4-12)
[2020-11-26 05:57] LABS: Platelet Count 104 T/CUMM (130-400)
[2020-11-26 06:29] LABS: Hypochromasia 1+; Platelet Estimate Decreased
[2020-11-26] MEDS: INSULIN LISPRO 100 UNIT/ML SUBCUT SCH ×4 (08:58→21:30)
[2020-11-26] MEDS: ACETAMINOPHEN 325 MG TABLET PO PRN (09:01)
[2020-11-26] MEDS: FENOFIBRATE 160 MG TABLET PO SCH (09:01)
[2020-11-26] MEDS: ASCORBIC ACID 500 MG TABLET NG SCH ×2 (09:01→20:51)
[2020-11-26] MEDS: predniSONE 20 MG TABLET PO SCH (09:01)
[2020-11-26] MEDS: CHOLECALCIFEROL 1,000 UNIT TABLET NG SCH (09:02)
[2020-11-26] MEDS: ZINC GLUCONATE 50 MG TABLET NG SCH (09:02)
[2020-11-26] MEDS: METOPROLOL TARTRATE 25 MG TABLET NG SCH ×2 (09:02→20:52)
[2020-11-26] MEDS: LACTULOSE 20 GM/30 ML UDCUP PO SCH ×2 (09:03→20:59)
[2020-11-26] MEDS: APIXABAN 5 MG TABLET PO SCH ×2 (09:03→20:51)
[2020-11-26] MEDS: INSULIN GLARGINE 100 UNIT/ML SUBCUT SCH (09:04)
[2020-11-26] MEDS: ALBUTEROL INHALER 18 GM INH SCH ×3 (09:34→13:13)
[2020-11-26 10:01] LABS: Albumin 3.6 G/DL (3.4-5.0); Bilirubin,Total 1.3 MG/DL (0.20-1.00); Calcium 8.8 MG/DL (8.5-10.1); Potassium 3.3 MMOL/L (3.5-5.1); Total Protein 6.5 G/DL (6.4-8.2)
[2020-11-26] MEDS: POLYETHYLENE GLYCOL POWDER 17 GM PACK PO SCH (10:24)
[2020-11-26] MEDS: POTASSIUM CHLORIDE RIDER 10 MEQ/100 ML PREMIX IV PRN ×4 (10:44→16:21)
[2020-11-26] MEDS: LEVOFLOXACIN INJ 750 MG/150 ML PREMIX IV SCH (13:11)
[2020-11-26] MEDS: QUEtiapine 25 MG TABLET PO SCH (20:51)
[2020-11-26] MEDS: ATORVASTATIN 20 MG TABLET PO SCH (20:52)
[2020-11-27] MEDS: FAMOTIDINE 20 MG/2 ML VIAL IV SCH ×2 (00:16→12:54)
[2020-11-27] MEDS: IBUPROFEN 100 MG/5 ML UDCUP PO PRN (00:17)
[2020-11-27 06:11] LABS: Basophils % 0.5 % (0.0-0.8); Eosinophils # 0.4 10*3/uL (0.0-0.87); Eosinophils % 5.2 % (0.00-10.9); Hematocrit 41.1 VOL% (42.0-52.0); Hemoglobin 13.3 GM/DL (14.0-18.0); Immature Granulocytes % 0.3 %; Immature Granulocytes Absolute 0.02 #; Lymphocytes # 2.6 10*3/uL (1.4-4.0); Lymphocytes % 33.2 % (21.2-54.2); Mean Corpuscular HGB Conc 32.4 GM/DL (32-36); Mean Corpuscular Volume 93.6 FL (87-102); Neutrophils % 53.8 % (38.7-73.9); Platelet Count 100 T/CUMM (130-400); Red Blood Count 4.39 MC/CUMM (3.8-5.5); Red Cell Distribution Width 14.7 % (9.3-17.3); White Blood Count 7.7 T/CUMM (4-12)
[2020-11-27 06:41] LABS: Hypochromasia Slight; Microcytosis Slight
[2020-11-27 06:42] LABS: Platelet Estimate Decreased
[2020-11-27 06:59] LABS: Albumin 3.2 G/DL (3.4-5.0); Bilirubin,Total 1.6 MG/DL (0.20-1.00); Calcium 8.3 MG/DL (8.5-10.1); Osmolality,Calculated 276.5 MOS/KG (273-304); Potassium 3.3 MMOL/L (3.5-5.1); Total Protein 5.9 G/DL (6.4-8.2)
[2020-11-27] MEDS: INSULIN LISPRO 100 UNIT/ML SUBCUT SCH ×4 (08:42→21:00)
[2020-11-27] MEDS: INSULIN GLARGINE 100 UNIT/ML SUBCUT SCH (10:14)
[2020-11-27] MEDS: APIXABAN 5 MG TABLET PO SCH ×2 (10:26→21:00)
[2020-11-27] MEDS: ALBUTEROL INHALER 18 GM INH SCH ×6 (10:26→22:07)
[2020-11-27] MEDS: CHOLECALCIFEROL 1,000 UNIT TABLET NG SCH (10:26)
[2020-11-27] MEDS: ZINC GLUCONATE 50 MG TABLET NG SCH (10:27)
[2020-11-27] MEDS: FENOFIBRATE 160 MG TABLET PO SCH (10:27)
[2020-11-27] MEDS: ASCORBIC ACID 500 MG TABLET NG SCH ×2 (10:27→20:59)
[2020-11-27] MEDS: METOPROLOL TARTRATE 25 MG TABLET NG SCH ×2 (10:27→20:59)
[2020-11-27] MEDS: predniSONE 20 MG TABLET PO SCH (10:27)
[2020-11-27] MEDS: POLYETHYLENE GLYCOL POWDER 17 GM PACK PO SCH (10:28)
[2020-11-27] MEDS: LACTULOSE 20 GM/30 ML UDCUP PO SCH ×2 (10:41→21:00)
[2020-11-27] MEDS: POTASSIUM CHLORIDE RIDER 10 MEQ/100 ML PREMIX IV PRN ×4 (10:42→16:04)
[2020-11-27] MEDS: LEVOFLOXACIN INJ 750 MG/150 ML PREMIX IV SCH (14:00)
[2020-11-27] MEDS: QUEtiapine 25 MG TABLET PO SCH (21:00)
[2020-11-27] MEDS: ATORVASTATIN 20 MG TABLET PO SCH (21:00)
[2020-11-27] MEDS: ACETAMINOPHEN 325 MG TABLET PO PRN (21:09)
[2020-11-28] MEDS: FAMOTIDINE 20 MG/2 ML VIAL IV SCH ×3 (00:14→23:38)
[2020-11-28] MEDS: ALBUTEROL INHALER 18 GM INH SCH ×3 (00:20→14:05)
[2020-11-28] MEDS: IBUPROFEN 100 MG/5 ML UDCUP PO PRN (00:41)
[2020-11-28 07:07] LABS: Albumin 3.2 G/DL (3.4-5.0); Bilirubin,Total 0.5 MG/DL (0.20-1.00); Calcium 8.6 MG/DL (8.5-10.1); Osmolality,Calculated 272.7 MOS/KG (273-304); Potassium 3.2 MMOL/L (3.5-5.1); Total Protein 5.9 G/DL (6.4-8.2)
[2020-11-28] MEDS: INSULIN GLARGINE 100 UNIT/ML SUBCUT SCH (08:33)
[2020-11-28] MEDS: INSULIN LISPRO 100 UNIT/ML SUBCUT SCH ×4 (08:33→22:10)
[2020-11-28] MEDS: POTASSIUM CHLORIDE 20 MEQ TABLET PO PRN ×4 (10:23→16:50)
[2020-11-28] MEDS: CHOLECALCIFEROL 1,000 UNIT TABLET NG SCH (10:24)
[2020-11-28] MEDS: ZINC GLUCONATE 50 MG TABLET NG SCH (10:24)
[2020-11-28] MEDS: ASCORBIC ACID 500 MG TABLET NG SCH ×2 (10:24→21:09)
[2020-11-28] MEDS: METOPROLOL TARTRATE 25 MG TABLET NG SCH ×2 (10:25→21:09)
[2020-11-28] MEDS: APIXABAN 5 MG TABLET PO SCH ×2 (10:26→21:09)
[2020-11-28] MEDS: predniSONE 20 MG TABLET PO SCH (10:26)
[2020-11-28] MEDS: FENOFIBRATE 160 MG TABLET PO SCH (10:26)
[2020-11-28] MEDS: LACTULOSE 20 GM/30 ML UDCUP PO SCH ×2 (10:28→21:10)
[2020-11-28] MEDS: POLYETHYLENE GLYCOL POWDER 17 GM PACK PO SCH (10:28)
[2020-11-28] MEDS: LEVOFLOXACIN INJ 750 MG/150 ML PREMIX IV SCH (12:39)
[2020-11-28] MEDS: ESCITALOPRAM 10 MG TABLET PO SCH (14:03)
[2020-11-28] MEDS: ATORVASTATIN 20 MG TABLET PO SCH (21:09)
[2020-11-28] MEDS: QUEtiapine 25 MG TABLET PO SCH (21:09)
[2020-11-28] MEDS: DICLOFENAC 1% GEL 100 GM TUBE TOP SCH (21:10)
[2020-11-29 06:40] LABS: Albumin 3.3 G/DL (3.4-5.0); Bilirubin,Total 0.6 MG/DL (0.20-1.00); Calcium 8.5 MG/DL (8.5-10.1); Osmolality,Calculated 276.5 MOS/KG (273-304); Potassium 3.1 MMOL/L (3.5-5.1); Total Protein 5.9 G/DL (6.4-8.2)
[2020-11-29] MEDS: INSULIN LISPRO 100 UNIT/ML SUBCUT SCH ×2 (09:22→11:43)
[2020-11-29] MEDS: FENOFIBRATE 160 MG TABLET PO SCH (10:28)
[2020-11-29] MEDS: APIXABAN 5 MG TABLET PO SCH ×2 (10:28→21:15)
[2020-11-29] MEDS: ESCITALOPRAM 10 MG TABLET PO SCH (10:28)
[2020-11-29] MEDS: POTASSIUM CHLORIDE 20 MEQ TABLET PO PRN ×4 (10:28→15:52)
[2020-11-29] MEDS: CHOLECALCIFEROL 1,000 UNIT TABLET NG SCH (10:29)
[2020-11-29] MEDS: ZINC GLUCONATE 50 MG TABLET NG SCH (10:29)
[2020-11-29] MEDS: INSULIN GLARGINE 100 UNIT/ML SUBCUT SCH (10:29)
[2020-11-29] MEDS: POLYETHYLENE GLYCOL POWDER 17 GM PACK PO SCH (10:29)
[2020-11-29] MEDS: ASCORBIC ACID 500 MG TABLET NG SCH ×2 (10:29→21:20)
[2020-11-29] MEDS: predniSONE 20 MG TABLET PO SCH (10:29)
[2020-11-29] MEDS: ALBUTEROL INHALER 18 GM INH SCH ×5 (10:30→18:51)
[2020-11-29] MEDS: LACTULOSE 20 GM/30 ML UDCUP PO SCH ×2 (10:30→21:20)
[2020-11-29] MEDS: METOPROLOL TARTRATE 25 MG TABLET NG SCH ×2 (10:31→21:20)
[2020-11-29] MEDS: DICLOFENAC 1% GEL 100 GM TUBE TOP SCH ×3 (10:31→21:20)
[2020-11-29] MEDS: ACETAMINOPHEN 325 MG TABLET PO PRN (12:02)
[2020-11-29] MEDS: FAMOTIDINE 20 MG/2 ML VIAL IV SCH (12:02)
[2020-11-29] MEDS: LEVOFLOXACIN INJ 750 MG/150 ML PREMIX IV SCH (12:06)
[2020-11-29] MEDS: ATORVASTATIN 20 MG TABLET PO SCH (21:20)
[2020-11-29] MEDS: QUEtiapine 25 MG TABLET PO SCH (21:20)
[2020-11-30] MEDS: ALBUTEROL INHALER 18 GM INH SCH ×4 (00:38→18:14)
[2020-11-30] MEDS: FAMOTIDINE 20 MG/2 ML VIAL IV SCH ×2 (00:38→12:12)
[2020-11-30 05:11] LABS: Basophils % 0.3 % (0.0-0.8); Eosinophils # 0.2 10*3/uL (0.0-0.87); Eosinophils % 2.2 % (0.00-10.9); Hematocrit 39.5 VOL% (42.0-52.0); Hemoglobin 12.8 GM/DL (14.0-18.0); Immature Granulocytes % 0.4 %; Immature Granulocytes Absolute 0.03 #; Lymphocytes # 2.9 10*3/uL (1.4-4.0); Lymphocytes % 37.3 % (21.2-54.2); Mean Corpuscular HGB Conc 32.4 GM/DL (32-36); Mean Corpuscular Volume 92.3 FL (87-102); Mean Platelet Volume 10.9 FL (9.6-12.0); Monocytes % 6.8 % (1.7-12.7); Platelet Count 108 T/CUMM (130-400); Red Blood Count 4.28 MC/CUMM (3.8-5.5); Red Cell Distribution Width 14.5 % (9.3-17.3); White Blood Count 7.7 T/CUMM (4-12)
[2020-11-30 05:48] LABS: Albumin 3.5 G/DL (3.4-5.0); Bilirubin,Total 0.8 MG/DL (0.20-1.00); Calcium 8.8 MG/DL (8.5-10.1); Osmolality,Calculated 280.3 MOS/KG (273-304); Potassium 3.5 MMOL/L (3.5-5.1); Total Protein 6.1 G/DL (6.4-8.2)
[2020-11-30] MEDS: METOPROLOL TARTRATE 25 MG TABLET NG SCH ×2 (09:40→21:05)
[2020-11-30] MEDS: ESCITALOPRAM 10 MG TABLET PO SCH (09:40)
[2020-11-30] MEDS: predniSONE 10 MG TABLET PO SCH (09:40)
[2020-11-30] MEDS: APIXABAN 5 MG TABLET PO SCH ×2 (09:40→21:05)
[2020-11-30] MEDS: CHOLECALCIFEROL 1,000 UNIT TABLET NG SCH (09:41)
[2020-11-30] MEDS: POTASSIUM CHLORIDE 20 MEQ TABLET PO SCH (09:42)
[2020-11-30] MEDS: ZINC GLUCONATE 50 MG TABLET NG SCH (09:42)
[2020-11-30] MEDS: ASCORBIC ACID 500 MG TABLET NG SCH ×2 (09:43→21:05)
[2020-11-30] MEDS: LACTULOSE 20 GM/30 ML UDCUP PO SCH ×2 (09:43→21:05)
[2020-11-30] MEDS: FENOFIBRATE 160 MG TABLET PO SCH (09:43)
[2020-11-30] MEDS: POLYETHYLENE GLYCOL POWDER 17 GM PACK PO SCH (09:44)
[2020-11-30] MEDS: DICLOFENAC 1% GEL 100 GM TUBE TOP SCH ×3 (09:46→21:08)
[2020-11-30] MEDS: QUEtiapine 25 MG TABLET PO SCH (21:05)
[2020-11-30] MEDS: ATORVASTATIN 20 MG TABLET PO SCH (21:05)
[2020-12-01] MEDS: FAMOTIDINE 20 MG/2 ML VIAL IV SCH ×2 (01:07→11:42)
[2020-12-01] MEDS: ALBUTEROL INHALER 18 GM INH SCH (01:07)
[2020-12-01 05:44] LABS: Basophils % 0.3 % (0.0-0.8); Eosinophils # 0.3 10*3/uL (0.0-0.87); Eosinophils % 3.8 % (0.00-10.9); Hematocrit 40.3 VOL% (42.0-52.0); Immature Granulocytes % 0.3 %; Immature Granulocytes Absolute 0.02 #; Lymphocytes % 39.8 % (21.2-54.2); Mean Corpuscular HGB Conc 32.3 GM/DL (32-36); Mean Corpuscular Volume 92.4 FL (87-102); Mean Platelet Volume 10.5 FL (9.6-12.0); Monocytes % 7.6 % (1.7-12.7); Neutrophils % 48.2 % (38.7-73.9); Platelet Count 120 T/CUMM (130-400); Red Blood Count 4.36 MC/CUMM (3.8-5.5); Red Cell Distribution Width 14.6 % (9.3-17.3); White Blood Count 7.4 T/CUMM (4-12)
[2020-12-01 06:13] LABS: Albumin 3.4 G/DL (3.4-5.0); Bilirubin,Total 0.7 MG/DL (0.20-1.00); Calcium 8.7 MG/DL (8.5-10.1); Osmolality,Calculated 276.4 MOS/KG (273-304); Potassium 3.1 MMOL/L (3.5-5.1); Total Protein 6.3 G/DL (6.4-8.2)
[2020-12-01 08:20] VITALS: BP 130/81
[2020-12-01] MEDS: ZINC GLUCONATE 50 MG TABLET NG SCH (09:30)
[2020-12-01] MEDS: ASCORBIC ACID 500 MG TABLET NG SCH (09:30)
[2020-12-01] MEDS: CHOLECALCIFEROL 1,000 UNIT TABLET NG SCH (09:30)
[2020-12-01] MEDS: FENOFIBRATE 160 MG TABLET PO SCH (09:30)
[2020-12-01] MEDS: predniSONE 10 MG TABLET PO SCH (09:30)
[2020-12-01] MEDS: ESCITALOPRAM 10 MG TABLET PO SCH (09:31)
[2020-12-01] MEDS: LACTULOSE 20 GM/30 ML UDCUP PO SCH (09:31)
[2020-12-01] MEDS: POTASSIUM CHLORIDE 20 MEQ TABLET PO SCH (09:31)
[2020-12-01] MEDS: APIXABAN 5 MG TABLET PO SCH (09:31)
[2020-12-01] MEDS: METOPROLOL TARTRATE 25 MG TABLET NG SCH (09:31)
[2020-12-01] MEDS: DICLOFENAC 1% GEL 100 GM TUBE TOP SCH (09:35)
[2020-12-01] MEDS: POLYETHYLENE GLYCOL POWDER 17 GM PACK PO SCH (09:35)
== END 2020-12-01 13:50 | disposition home health service (06) | DRG 207 ==
LOC: EDUNIT# → EDBD → N.ED 09:29 → N.EDINP 11:41 → SUATTDRO 11:41 → N.CC 13:01 → N.TELEN 11-23 17:51
PROVIDERS: ADMIT Family Medicine; ATTEND Internal Medicine Geriatric Medicine